=== PATIENT | female | born 1980 | race African-American/Black ===

== ENCOUNTER 2020-09-19 15:26 | Outpatient (CLI) | payer OTHER, SELFPAY ==
--- NOTE | ~2020-09-19 | MR_ITS ---
EXAMINATION: MRA neck wo/w con DATE: 09/19/2020 17:11 INDICATION: Cerebral aneurysm. TECHNIQUE: Magnetic resonance angiography (MRA) of the neck was performed without and with 15 mL Mult iHance intravenous contrast. Sequences included axial 2D-time of flight T1-weighted FSPGR, axial Inha nce, and coronal T1-weighted FSPGR without and with intravenous contrast. COMPARISON: None. FINDINGS: There is no significant stenosis of the vertebral arteries. Left common carotid artery arises from th e brachiocephalic trunk. There is no visible plaque in the proximal internal carotid arteries. There is 0% stenosis of the proximal right internal carotid artery relative to normal distal artery lumen d iameter (NASCET criteria). There is 0% stenosis of the proximal left internal carotid artery relativ e to normal distal artery lumen diameter. IMPRESSION: 1. Normal neck MRA. Reviewed, dictated and finalized at location A. ROL AND RECOVERY COMBAT RESCUE IMPRESSION: 1. Normal neck MRA.
--- NOTE | ~2020-09-19 | MR_ITS ---
EXAMINATION: MRA brain wo con DATE: 09/19/2020 17:11 INDICATION: Cerebral aneurysm. TECHNIQUE: Magnetic resonance angiography (MRA) of the brain was performed without intravenous contra st with T1-weighted SPGR by the 3D [id number] technique. Maximum intensity projection 3D-reconstr uctions were obtained. COMPARISON: None. FINDINGS: The vertebral arteries are codominant. There is no significant stenosis of basilar artery or the post erior cerebral arteries. There is no significant stenosis of intracranial internal carotid arteries o r anterior or middle cerebral arteries. Anterior communicating artery is normal. The posterior commun icating arteries are normal. There is no aneurysm. IMPRESSION: 1. Normal head MRA. Reviewed, dictated and finalized at location A. GER OF SELECTION AND ASSESSMENT IMPRESSION: 1. Normal head MRA.
[2020-09-19 16:22] LABS: Estimated Glomerular Filt Rate > 60
== END 2020-09-19 15:27 | disposition home or self-care (01) ==
PROVIDERS: PCP Chiropractor; Visit Provider Chiropractor
DX: Z86.718 Personal history of other venous thrombosis and embolism (principal)
CPT/HCPCS: 70544; 70549; A9577